=== PATIENT | female | born 1970 | race Hispanic/Latino ===

== ENCOUNTER 2023-11-17 10:16 | Observation (INO) | payer BC ==
[2023-11-17] MEDS ORDERED: ONDANSETRON 4 MG/2 ML VIAL ONE (10:46)
[2023-11-17] MEDS ORDERED: MORPHINE 4 MG/ML SYR ONE (10:46)
[2023-11-17 10:49] LABS: Absolute Eosinophils 0.2 K/uL (0-0.5); Absolute Lymphocytes (CBC) 1.7 K/uL (0.7-4.9); Absolute Monocytes 0.4 K/uL (0.1-1.3); Absolute Neutrophil 3.5 K/uL (1.8-8.0); Basophils % 0.8 % (0-1.3); Eosinophils % 3.3 % (0-4.4); Hematocrit 42.4 % (36.0-45.0); Hemoglobin 14.3 g/dL (12.0-15.0); Lymphocytes % 28.3 % (15.3-44.8); MCH 31.9 pg (27.0-35.0); MCHC 33.7 g/dL (32.0-36.0); MCV 94.5 fL (80-100); MPV 11.2 fL (7.6-11.3); Monocytes % 7.6 % (3.3-12.3); Platelets 174 thou/uL (152-406); RBC Red Blood Cell Count 4.48 M/uL (3.86-4.86); Red Cell Distribution Width 13.5 % (12.1-15.2)
[2023-11-17 10:52] LABS: PT Prothrombin Time 12.6 SECONDS (9.4-12.5); Protime INR 1.13
[2023-11-17 11:07] LABS: Troponin High Sensitivity 9.7 pg/mL (<58.9)
[2023-11-17] MEDS ORDERED: ASPIRIN 81 MG CHEWABLE TABLET ONE (11:18)
[2023-11-17] MEDS ORDERED: POTASSIUM 25 MEQ EFFERV TAB ONE (11:36)
[2023-11-17] MEDS ORDERED: POTASSIUM CL SA 10 MEQ TAB PO ONE (11:37)
--- NOTE | 2023-11-17 13:32 | ER ---
Nurse's Notes [facility] Name: Isabelle Martinez Age: 53 yrs Sex: Female : 1970 Arrival Date: 11/17/2023 Time: 10:16 Bed 20 Private MD: Diagnosis: Chest pain, unspecified Presentation: 11/16 10:27 Chief complaint: EMS states: Syncopal episode at work, reports chest pressure and ph dizziness prior to passing out, bystanders lowered her to the ground, BP elevated at 161/111, HR and SPo2 WNL, BGL 122, 22 G to L hand. Coronavirus screen: Vaccine status: Patient reports receiving the 2nd dose of the covid vaccine. Ebola Screen: No symptoms or risks identified at this time. Initial Sepsis Screen: Does the patient meet any 2 criteria? No. Patient's initial sepsis screen is negative. Does the patient have a suspected source of infection? No. Patient's initial sepsis screen is negative. Risk Assessment: Do you want to hurt yourself or someone else? Patient reports no desire to harm self or others. Onset of symptoms was November 17, 2023. 10:27 Method Of Arrival: EMS: [facility] 10:27 Acuity: QASIM 2 ph Triage Assessment: 10:30 General: Appears in no apparent distress. Behavior is calm, cooperative. Pain: Denies ph pain. Neuro: Level of Consciousness is awake, alert, obeys commands, Oriented to person, place, time, situation, Reports weakness. Cardiovascular: Reports fatigue, lightheadedness, syncope, chest pain prior to syncopal episode Capillary refill < 3 seconds in bilateral fingers Patient's skin is warm and dry. Respiratory: Airway is patent Respiratory effort is even, unlabored, Respiratory pattern is regular, symmetrical. Musculoskeletal: Circulation, motion, and sensation intact. Range of motion: intact in all extremities. 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 - Infectious Disease History:: Denies. - Social history:: Smoking status: Patient denies any tobacco usage or history of. Screenin:23 [facility] ED Fall Risk Assessment (Adult) History of falling in the last 3 months, ph including since admission No falls in past 3 months (0 pts) Confusion or Disorientation No (0 pts) Intoxicated or Sedated No (0 pts) Impaired Gait No (0 pts) Mobility Assist Device Used No (0 pt) Altered Elimination No (0 pt) Score/Fall Risk Level 0 - 2 = Low Risk Oriented to surroundings, Maintained a safe environment, Hourly rounding (assess needs \T\ fall precautionary measures) done. Abuse screen: Denies threats or abuse. Denies injuries from another. Nutritional screening: No deficits noted. Tuberculosis screening: No symptoms or risk factors identified. Assessment: 11:00 Reassessment: Pt c/o chest pain, ERP notified, repeat EKG and medication ordered, see ph APR. 12:30 Reassessment: Patient appears in no apparent distress at this time. Patient and/or ph family updated on plan of care and expected duration. Pain level reassessed. Patient is alert, oriented x 3, equal unlabored respirations, skin warm/dry/pink. 13:30 Reassessment: Patient appears in no apparent distress at this time. Patient and/or ph family updated on plan of care and expected duration. Pain level reassessed. Patient is alert, oriented x 3, equal unlabored respirations, skin warm/dry/pink. 14:30 Reassessment: Patient appears in no apparent distress at this time. Patient and/or ph family updated on plan of care and expected duration. Pain level reassessed. Patient is alert, oriented x 3, equal unlabored respirations, skin warm/dry/pink. 15:41 General: Appears in no apparent distress. comfortable, Behavior is calm, cooperative, cm10 appropriate for age. Neuro: No deficits noted. Level of Consciousness is awake, alert, obeys commands, Oriented to person, place, time, situation, Appropriate for age. Respiratory: No deficits noted. Airway is patent Respiratory effort is even, unlabored, Respiratory pattern is regular, symmetrical. Vital Signs: 10:27 BP 179 / 119; Pulse 89; Resp 18; Temp 97.6; Pulse Ox 96% on R/A; Weight 79.38 kg; ph Height 5 ft. 3 in. ; 11:11 BP 158 / 115; Pulse 83; Resp 18; Pulse Ox 98% on R/A; ph 12:30 BP 167 / 104; Pulse 84; Resp 18; Pulse Ox 98% on R/A; ph 13:30 BP 171 / 98; Pulse 82; Resp 18; Pulse Ox 99% on R/A; ph 14:30 BP 189 / 102; Pulse 76; Resp 16; Pulse Ox 99% on R/A; ph 15:41 BP 154 / 98; Pulse 78; Resp 16; Pulse Ox 98% on R/A; cm10 10:27 Body Mass Index 31.00 (79.38 kg, 160.02 cm) ph Vitals: 11:11 Cardiac Rhythm Assessment Sinus rhythm. ph ED Course: 10:26 Patient arrived in ED. ec2 10:26 Ameya Alexander MD is Attending Physician. ec2 10:26 Mira Cabral, DON is Primary Nurse. ph 10:29 Triage completed. ph 10:30 Arm band placed on Patient placed in an exam room, on a stretcher, on nuclear monitoring technician, ph on pulse oximetry. 10:45 Initial lab(s) drawn, by me, sent to lab. EKG done, by ED staff, reviewed by Ameya Alexander MD. Maintain EMS IV. Dressing intact. Good blood return noted. Site clean \T\ dry. Gauge \T\ site: 22 L hand. 11:05 EKG done, by ED staff, reviewed by Ameya Alexander MD. ph 11:20 CT Head Brain wo Cont In Process Unspecified. EDMS 11:23 Patient has correct armband on for positive identification. Bed in low position. Call ph light in reach. Side rails up X 1. air sampling and monitoring on. Pulse ox on. NIBP on. Door closed. Noise minimized. Warm blanket given. 11:40 XRAY Chest (1 view) In Process Unspecified. EDMS 13:32 Romulo Butcher MD is Hospitalizing Provider. ec2 15:42 Provided Education on: Need for admit. cm10 15:42 No provider procedures requiring assistance completed. Patient admitted, IV remains in cm10 place. Administered Medications: 11:10 Drug: morphine IVP or IV 4 mg IVP once over 4 mins Route: IVP; Infused Over: 4 mins; ph Site: left hand; 15:43 Follow up: Response: No adverse reaction cm10 11:11 Drug: Ondansetron IVP 4 mg IVP once; over 2 minutes Route: IVP; Site: left hand; 15:43 Follow up: Response: No adverse reaction cm10 11:49 Drug: Aspirin PO Chewable Tablet 324 mg PO once; 81 mg tablets x 4 Route: PO; ph 16:19 Follow up: Response: No adverse reaction cm10 11:49 Drug: Potassium Chloride PO Liquid 40 mEq PO once Route: PO; 15:43 Follow up: Response: No adverse reaction cm10 15:09 Drug: Coreg PO 6.25 mg PO once; administer with food Route: PO; 15:43 Follow up: Response: No adverse reaction; Blood pressure is lowered cm10 Medication: 11:23 VIS not applicable for this client. Outcome: 13:32 Decision to Hospitalize by Provider. ec2 15:42 Admitted to Tele accompanied by tech, via wheelchair, [facility] 15:42 Condition: good 15:42 Instructed on the need for admit, 16:18 Patient left the ED. cm10 Signatures: Dispatcher [employer] Kary Gentile RN RN Mira Cabral RN RN Sariah Carver RN RN [facility] Ameya Alexander MD MD 2
--- NOTE | 2023-11-17 13:32 | EDPHYS ---
Physician Documentation [facility] Name: Isabelle Martinez Age: 53 yrs Sex: Female : 1970 Arrival Date: 11/17/2023 Time: 10:16 Bed 20 Private MD: ED Physician Ameya Alexander HPI: 11/16 10:32 This 53 yrs old Female presents to ER via EMS with complaints of Syncope. ec2 10:32 Patient arrives today for evaluation of a syncopal episode. States that she was running ec2 and subsequently became lightheaded and passed out. Patient reports some chest pressure and discomfort as well. States that she has had bouts of these passing out episodes for the past several years. Patient reports no difficulty breathing. Patient reports otherwise no recent illnesses.. 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 - Infectious Disease History:: Denies. - Social history:: Smoking status: Patient denies any tobacco usage or history of. ROS: 10:32 Constitutional: as per hpi ec2 Exam: 10:32 ECG was reviewed by the Attending Physician. ec2 10:32 Constitutional: GEN: NAD Head: atraumatic Eyes: EOMI Ears: External ears are ec2 normal. CV: regular rate LUNGS: no respiratory distress ABD: non-distended SKIN: no evidence of rashes MSK: no evidence of trauma Vital Signs: 10:27 BP 179 / 119; Pulse 89; Resp 18; Temp 97.6; Pulse Ox 96% on R/A; Weight 79.38 kg; ph Height 5 ft. 3 in. ; 11:11 BP 158 / 115; Pulse 83; Resp 18; Pulse Ox 98% on R/A; ph 12:30 BP 167 / 104; Pulse 84; Resp 18; Pulse Ox 98% on R/A; ph 13:30 BP 171 / 98; Pulse 82; Resp 18; Pulse Ox 99% on R/A; ph 14:30 BP 189 / 102; Pulse 76; Resp 16; Pulse Ox 99% on R/A; ph 15:41 BP 154 / 98; Pulse 78; Resp 16; Pulse Ox 98% on R/A; cm10 10:27 Body Mass Index 31.00 (79.38 kg, 160.02 cm) ph MDM: 10:26 Patient medically screened. ec2 10:32 ED course: EKG independently reviewed and interpreted by me, shows normal sinus rhythm, ec2 rate of 88, no acute ST segment elevations, intervals are nonactionable.. 10:33 Data reviewed: vital signs. ED course: Patient arrives today for evaluation of ec2 lightheadedness and syncope. Examination remarkable for well-appearing nontoxic individuals otherwise hemodynamically stable in no acute distress. Will obtain a cardiac workup, CT scan of the head. Evaluating for processes such as intracranial brain bleed, electrolyte disturbances, arrhythmia, ACS.. 11:03 ED course: EKG independently reviewed and interpreted by me, shows normal sinus rhythm, ec2 rate of 88, no acute ST segment elevations, nonactionable intervals.. 11:17 ED course: Metabolic profile shows slight hypokalemia with potassium of 3.0, CBC ec2 reassuring without anemia, troponin within normal ranges. . 13:25 ED course: There is issues with transmission of radiology interpretations, per Dr. zach Gomez, CT scan of the head negative for acute intracranial process.. 13:31 ED course: Patient with reassuring workup however does have intermittent chest pain. ec2 Will admit for cardiac eval.. 11/16 10:26 Order name: Basic Metabolic Panel; Complete Time: 11:17 ec2 11/16 10:26 Order name: CBC with Diff; Complete Time: 11:17 ec2 11/16 10:26 Order name: NT PRO-BNP; Complete Time: 11: ec2 11/16 10:26 Order name: PT-INR; Complete Time: 11:17 ec2 11/16 10:26 Order name: Troponin HS; Complete Time: 11:17 ec2 11/16 10:26 Order name: XRAY Chest (1 view); Complete Time: 13:54 ec2 11/16 10:26 Order name: CT Head Brain wo Cont; Complete Time: 13:54 ec2 11/16 10:26 Order name: EKG; Complete Time: 10:27 ec2 11/16 10:26 Order name: Cardiac monitoring; Complete Time: 11: ec2 11/16 10:26 Order name: EKG - Nurse/Tech; Complete Time: 11:10 ec2 11/16 10:26 Order name: IV Saline Lock; Complete Time: 11:10 ec2 11/16 10:26 Order name: Labs collected and sent; Complete Time: 11: ec2 11/16 10:26 Order name: O2 Per Protocol; Complete Time: 11:10 ec2 11/16 10:26 Order name: O2 Sat Monitoring; Complete Time: 11: ec2 11/16 10:42 Order name: EKG - Nurse/Tech; Complete Time: 11:11 ec2 Administered Medications: 11:10 Drug: morphine IVP or IV 4 mg IVP once over 4 mins Route: IVP; Infused Over: 4 mins; ph Site: left hand; 15:43 Follow up: Response: No adverse reaction cm10 11:11 Drug: Ondansetron IVP 4 mg IVP once; over 2 minutes Route: IVP; Site: left hand; ph 15:43 Follow up: Response: No adverse reaction cm10 11:49 Drug: Aspirin PO Chewable Tablet 324 mg PO once; 81 mg tablets x 4 Route: PO; ph 16:19 Follow up: Response: No adverse reaction cm10 11:49 Drug: Potassium Chloride PO Liquid 40 mEq PO once Route: PO; ph 15:43 Follow up: Response: No adverse reaction cm10 15:09 Drug: Coreg PO 6.25 mg PO once; administer with food Route: PO; iw 15:43 Follow up: Response: No adverse reaction; Blood pressure is lowered cm10 Disposition Summary: 11/17/23 13:32 Hospitalization Ordered Notes: Hospitalization Status: Inpatient Admission ec2 Provider: Romulo Butcher ec2 Location: Telemetry/[facility] (Inpatient) ec2 Condition: Stable ec2 Problem: new ec2 Symptoms: have improved ec2 Bed/Room Type: Standard ec2 Room Assignment: 408(11/17/23 15:28) kb3 Diagnosis - Chest pain, unspecified ec2 Forms: - Medication Reconciliation Form ec2 - SBAR form ec2 - Leadership Thank You Letter ec2 Signatures: Dispatcher [employer] Kary Gentile RN RN Mira Cabral RN RN Whitney Jones RN RN kb3 Ameya Alexander MD MD ec2 Sariah Carver RN cm10 Corrections: (The following items were deleted from the chart) 15:28 13:32 ec2 kb3
--- NOTE | 2023-11-17 13:47 | RAD REPORT ---
EXAM: CT brain without contrast HISTORY: Syncope COMPARISON: None TECHNIQUE: Multiple contiguous axial images were obtained and a CT of the brain without contrast. Sagittal and coronal reformats were performed. Automated exposure control, adjustment of the mA and/or kV according to patient size, and/or itera tive reconstruction. Unless otherwise specified, incidental findings do not require dedicated imaging follow-u FINDINGS: An intracranial bleed is not seen Ventricles are normal caliber No extra-axial fluid collection noted No significant hypodensity within the brain No fluid within the visualized sinuses or mastoids noted. IMPRESSION: No acute intracranial abnormality noted. If the patient's symptoms persist MRI of the brain would be recommended.
--- NOTE | 2023-11-17 13:48 | RAD REPORT ---
Procedure: Chest Single View History: Chest pain Comparison: none The lungs appear clear of acute infiltrate.. alarm security or surveillance monitor in place No significant pleural effusion noted. The heart is normal size. IMPRESSION: No acute abnormality is displayed.
[2023-11-17] MEDS ORDERED: carvediloL 6.25 MG TAB ONE (15:02)
--- NOTE | 2023-11-17 16:11 | P.HP ---
Certification for Inpatient Patient admitted to: Observation With expected LOS: <2 Midnights Patient will require the following post-hospital care: None Practitioner: I am a practitioner with admitting privileges, knowledge of patient current condition, hospital course, and medical plan of care. Services: Services provided to patient in accordance with Admission requirements found in Title 42 Section 412.3 of the Code of Federal Regulations Patient History Date of Service: 11/17/23 Reason for admission: Chest pain, syncope History of Present Illness: 53-year-old female with history of hypertension, hyperlipidemia presents the emergency department chief complaint of syncope, chest pain. She reports that she has had multiple episodes of syncope in the past, has a loop recorder in place without any official diagnosis. 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 She reports similar episodes in the past, she states that she had an echocardiogram done maybe around 6 months ago a stress test a year and a half ago and has never had a coronary angiogram. She does report a family history of heart disease including CHF, CAD with her mother father and brother. Patient was evaluated in the emergency department initial high sensitive troponin was within normal limits at 9.7, patient is significantly hypertensive, she has not been taking her blood pressure medication for at least a few weeks now. I personally called her pharmacy and they do not have any record of blood pressure medications for her, her blood pressure is currently around 180/120, she reports this is not atypical for her. Patient admitted for further evaluation management chest pain, syncope. 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, lives at home with her - Family History Father -: Heart disease Mother -: Heart disease - Social History Alcohol use: No CD- Drugs: No Caffeine use: Yes Place of Residence: Home Review of Systems 10-point ROS is otherwise unremarkable Cardiovascular: Chest Pain, Other (Syncope) Physical Examination - Physical Exam General: Alert, In no apparent distress, Oriented x3 HEENT: Atraumatic, PERRLA, EOMI Neck: Supple, 2+ carotid pulse no bruit, No LAD Respiratory: Clear to auscultation bilaterally, Normal air movement Cardiovascular: Regular rate/rhythm, Normal S1 S2 Gastrointestinal: Normal bowel sounds, No tenderness Musculoskeletal: No tenderness Integumentary: No rashes Neurological: Normal speech, Normal strength at 5/5 x4 extr, Normal tone, Normal affect - Studies Laboratory Data (last 24 hrs) 11/17/23 11/17/23 11/17/23 10:38 10:38 10:38 WBC 5.90 Hgb 14.3 Hct 42.4 Plt Count 174 PT 12.6 H INR 1.13 Sodium 142 Potassium 3.0 L BUN 11 Creatinine 0.68 Glucose 103 Assessment and Plan - Plan Assessment: Chest pain, syncope Hypertensive urgency Hyperlipidemia Plan: Chest pain, syncope Hypertensive urgency Reports multiple episodes of syncope in the past with negative workup thus far Had loop recorder inserted about 2 years ago, has not heard anything back Reports echocardiogram around 6 months ago to 1 year ago, not aware of any abnormalities Stress test around a year and a half ago but was unable to tolerate finishing the test due to dizziness Has not had a coronary angiogram in the past Does have significant family history of CAD, CHF Was reportedly previously on blood pressure medications but has been noncompliant Started on Coreg at this time Troponins and monitor on telemetry, echo ordered Appreciate further input from cardiology Hyperlipidemia Continue statin DVT PPX: Lovenox Code status: Full Discharge Plan: Home Plan to discharge in: 24 Hours - Advance Directives Does patient have a Living Will: No Does patient have a Durable POA for Healthcare: No - Code Status/Comfort Care Code Status Assessed: Yes (Full code) Critical Care: No Time Spent Managing Pts Care (In Minutes): 64
[2023-11-17] MEDS ORDERED: ONDANSETRON 4 MG/2 ML VIAL IV PRN (16:29)
[2023-11-17] MEDS ORDERED: HYDRALAZINE HCL 20 MG/ML VIAL IV PRN (16:29)
[2023-11-17 16:54] VITALS: BMI 30.9
[2023-11-17] MEDS: ENOXAPARIN 40 MG/0.4 ML SQ SCH (17:48)
--- NOTE | 2023-11-17 17:53 | P.CNS ---
Date of Consult: 11/17/23 Chief Complaint: Chest pain, syncope History of Present Illness: Patient with PMH of palpitations, syncope, presented with chest pain, and syncope after a stressful event, she report that she has been having those chest pain episodes, left sided, radiating to left arm, pressure in nature, she was not able to finish a stress test in the past due to dizziness. Allergies No Known Allergies Allergy (Unverified 11/17/23 15:41) Home medications list reviewed: Yes Home Medications: Aspirin [Aspirin EC 81 MG] 1 tab PO DAILY 11/17/23 - Past Medical/Surgical History Diabetic: No -: Hyperlipidemia -: Hypertension -: Anxiety -: Partial hysterectomy -: Tubal ligation -: Cholecystectomy Psychosocial/ Personal History: Patient works as a corporate legal secretary in the intermediate, lives at home with her - Family History Father Medical History: Heart disease Mother Medical History: Heart disease - Social History Alcohol use: Yes CD- Drugs: No Caffeine use: Yes Place of Residence: Home Review of Systems 10-point ROS is otherwise unremarkable Physical Examination Temp Pulse Resp BP Pulse Ox 97.6 F 78 16 154/98 H 11/17/23 10:27 11/17/23 15:41 11/17/23 15:41 11/17/23 15:41 General: Alert, In no apparent distress HEENT: Atraumatic, PERRLA, Mucous membr. moist/pink, EOMI, Sclerae nonicteric Neck: Supple, 2+ carotid pulse no bruit, No LAD, Without JVD or thyroid abnormality Respiratory: Clear to auscultation bilaterally, Normal air movement Cardiovascular: Regular rate/rhythm, Normal S1 S2 Gastrointestinal: Normal bowel sounds, No tenderness Musculoskeletal: No tenderness Integumentary: No rashes Neurological: Normal gait, Normal speech, Normal tone, Normal affect Lymphatics: No axilla or inguinal lymphadenopathy Laboratory Data (last 24 hrs) 11/17/23 11/17/23 11/17/23 10:38 10:38 10:38 WBC 5.90 Hgb 14.3 Hct 42.4 Plt Count 174 PT 12.6 H INR 1.13 Sodium 142 Potassium 3.0 L BUN 11 Creatinine 0.68 Glucose 103 - Problems (1) Unstable angina Current Visit: Yes Status: Acute Plan: patient with strong family history of CAD, unable to get a stress test in the past due to dizziness, presented with typical angina symptoms NPO after midnight for coronary angiogram in am continue ASA 81 mg daily (2) HTN (hypertension) Current Visit: Yes Status: Acute Plan: change Coreg to Toprol XL 25 mg daily (3) Syncope Current Visit: Yes Status: Acute Plan: Patient got a loop recorder in place, will have her follow up in office for interrogation, will also monitor on tele overnight.
[2023-11-17 20:05] LABS: Specific Gravity 1.025 (1.005-1.030); Sqamous Epithelial <5 /HPF (None Seen); Urine Bacteria <20 /HPF (<20); Urine Bilirubin NEGATIVE (Negative); Urine Blood Negative (Negative); Urine Clarity Clear (Clear); Urine Color Light-Yellow (Yellow); Urine Culture Reflex Order NOT NEEDED; Urine Glucose NEGATIVE (Negative); Urine Ketones NEGATIVE (Negative); Urine Microscopic Reflex YN ORDER UMIC; Urine Mucus 4+ /HPF (None Seen); Urine Nitrite NEGATIVE (Negative); Urine Protein TRACE (Negative); Urine RBC <5 /HPF (None Seen); Urine Urobilinogen Normal (Normal); Urine WBC <5 /HPF (<5)
[2023-11-17] MEDS: ATORVASTATIN 40 MG TAB PO SCH (21:09)
[2023-11-17] MEDS: MORPHINE 2 MG/ML SYR IV PRN (21:09)
[2023-11-17] MEDS: TRAZODONE 50 MG TABLET PO PRN (22:27)
[2023-11-18] MEDS ORDERED: carvediloL 6.25 MG TAB PO SCH (06:00)
[2023-11-18] MEDS: METOPROLOL XL 25 MG TAB PO SCH (06:31)
--- NOTE | 2023-11-18 06:42 | ECHO ---
HEIGHT: 5 ft 3 in WEIGHT: 175 lb 0 oz DATE OF STUDY: 11/17/[address]: Alex Henson NP 2-DIMENSIONAL: YES M.MODE: YES DOPPLER: YES COLOR FLOW: YES TDS: PORTABLE: YES DEFINITY: BUBBLE STUDY: DIAGNOSIS: CHEST PAIN, SYNCOPE CARDIAC HISTORY: CATHERIZATION: NO SURGERY: NO PROSTHETIC VALVE: NO PACEMAKER: NO MEASUREMENTS (cm) DIASTOLIC (NORMALS) SYSTOLIC (NORMALS) IVSd 1.2 (0.6-1.2) LA Diam 2.8 (1.9-4.0) LVEF 60-65% LVIDd 4.0 (3.5-5.7) LVIDs 2.8 (2.0-3.5) %FS 29% LVPWd 1.1 (0.6-1.2) Ao Diam 2.6 (2.0-3.7) 2 DIMENSIONAL ASSESSMENT: RIGHT ATRIUM: NORMAL LEFT ATRIUM: NORMAL RIGHT VENTRICLE: NORMAL LEFT VENTRICLE: NORMAL TRICUSPID VALVE: NORMAL MITRAL VALVE: NORMAL PULMONIC VALVE: NORMAL AORTIC VALVE: NORMAL PERICARDIAL EFFUSION: NONE AORTIC ROOT: NORMAL LEFT VENTRICULAR WALL MOTION: NORMAL DOPPLER/COLOR FLOW: NORMAL COMMENTS: 1. NORMAL LEFT VENTRICULAR SYSTOLIC FUNCTION, EJECTION FRACTION 60-65%, NORMAL DIASTOLIC FUNCTION TECHNOLOGIST: BUZZ BENÍTEZ
[2023-11-18 07:43] LABS: Absolute Eosinophils 0.3 K/uL (0-0.5); Absolute Lymphocytes (CBC) 1.7 K/uL (0.7-4.9); Absolute Monocytes 0.5 K/uL (0.1-1.3); Absolute Neutrophil 2.9 K/uL (1.8-8.0); Basophils % 0.8 % (0-1.3); Eosinophils % 5.4 % (0-4.4); Hemoglobin 13.9 g/dL (12.0-15.0); Lymphocytes % 31.8 % (15.3-44.8); MCH 32.5 pg (27.0-35.0); MCHC 34.6 g/dL (32.0-36.0); MCV 93.9 fL (80-100); MPV 10.8 fL (7.6-11.3); Nucleated Red Blood Cells % 0.2 % (0-0); Platelets 160 thou/uL (152-406); RBC Red Blood Cell Count 4.26 M/uL (3.86-4.86); Red Cell Distribution Width 13.7 % (12.1-15.2)
[2023-11-18 07:54] LABS: Albumin 3.3 g/dL (3.4-5.0); Albumin/Globulin Ratio 0.8 (1.1-1.8); Anion Gap 6.4 mEq/L (5.0-15.0); Bilirubin Total 0.6 mg/dL (0.2-1.0); Potassium 3.4 mEq/L (3.5-5.1); Protein, Total 7.3 g/dL (6.4-8.2); Thyroid Stimulating Hormone 0.834 uIU/mL (0.358-3.740)
[2023-11-18] MEDS: ASPIRIN EC 81 MG TAB PO SCH (08:18)
[2023-11-18 08:23] VITALS: TEMP 97.7
[2023-11-18] MEDS ORDERED: NA CHLORIDE 0.9% 500 ML ONE (09:33)
[2023-11-18] MEDS ORDERED: ATROPINE SULF 1 MG/10 ML SYR IV ONE (10:44)
[2023-11-18] MEDS ORDERED: HEPA 1000U/500MLS 2,000 UNIT/1,000 ML BAG IV ONE (10:44)
[2023-11-18] MEDS ORDERED: LIDOCAINE 1% 20 ML MDV ONE (10:44)
[2023-11-18] MEDS ORDERED: HEPARIN 10,000 UNIT/10 ML VIAL IV ONE (10:44)
[2023-11-18] MEDS ORDERED: MIDAZOLAM HCL 2 MG/2 ML INJ ONE (10:44)
[2023-11-18] MEDS ORDERED: HEPARIN 5000 UNIT/ML 1 ML VIAL ONE (10:45)
[2023-11-18] MEDS ORDERED: CLOPIDOGREL 75 MG TABLET ONE (10:45)
[2023-11-18] MEDS ORDERED: FENTANYL CITR 100 MCG/2 ML ONE (10:45)
[2023-11-18] MEDS ORDERED: TICAGRELOR 90 MG TABLET PO ONE (10:46)
[2023-11-18] MEDS ORDERED: ASPIRIN 325 MG TAB ONE (10:46)
--- NOTE | 2023-11-18 12:01 | P.PN ---
Subjective Date of Service: 11/18/23 Chief Complaint: Chest pain, syncope Subjective: No new changes, No C/O voiced, Tolerating diet, Ambulating, Improving Review of Systems 10-point ROS is otherwise unremarkable Physical Examination - Vital Signs Temperature: 97.7 F Blood Pressure: 130/83 Pulse: 61 Respirations: 16 Pulse Ox (%): 94 - Physical Exam General: Alert, In no apparent distress HEENT: Atraumatic, PERRLA, EOMI Neck: Supple, JVD not distended Respiratory: Clear to auscultation bilaterally, Normal air movement Cardiovascular: Regular rate/rhythm, Normal S1 S2 Gastrointestinal: Normal bowel sounds, No tenderness Musculoskeletal: No tenderness Integumentary: No rashes Neurological: Normal speech, Normal tone, Normal affect Lymphatics: No axilla or inguinal lymphadenopathy - Studies Medications List Reviewed: Yes Assessment And Plan - Current Problems (Diagnosis) (1) Unstable angina Current Visit: Yes Status: Acute Plan: patient with strong family history of CAD, unable to get a stress test in the past due to dizziness, presented with typical angina symptoms Coronary angiogram done and shows normal coronaries Stop ASPIRIN Continue Toprol XL 25 mg daily (2) HTN (hypertension) Current Visit: Yes Status: Acute Plan: Toprol XL 25 mg daily (3) Syncope Current Visit: Yes Status: Acute Plan: Patient got a loop recorder in place, will have her follow up in office for interrogation, tele did not show any arrhythmia.
--- NOTE | 2023-11-18 12:11 | EKG ---
Test Date: 2023-11-17 Test Time: 10:45:35 Resource Engineer: JOSHUA MEASUREMENT RESULTS: Intervals: Rate: 88 CA: 158 QRSD: 80 QT: 404 QTc: 488 Healy: P: 39 CA: 158 QRS: -29 T: 21 INTERPRETIVE STATEMENTS: Sinus rhythm with occasional premature ventricular complexes Voltage criteria for left ventricular hypertrophy Prolonged QT Abnormal ECG Compared to ECG 11/17/2023 10:30:00 Ventricular premature complex(es) now present Left ventricular hypertrophy now present Prolonged QT interval now present T-wave abnormality no longer present Possible ischemia no longer present Electronically Signed On 11-18-23 12:09:00 CDT by Keven Carrillo
--- NOTE | 2023-11-18 12:11 | EKG ---
Test Date: 2023-11-17 Test Time: 10:30:00 Access Director: EULALIA MEASUREMENT RESULTS: Intervals: Rate: 88 AL: 154 QRSD: 86 QT: 392 QTc: 474 [place]: P: -77 AL: 154 QRS: 75 T: -69 INTERPRETIVE STATEMENTS: Unusual P axis, possible ectopic atrial rhythm T wave abnormality, consider inferior ischemia Abnormal ECG No previous ECG available for comparison Electronically Signed On 11-18-23 12:09:05 CDT by Keven Carrillo
--- NOTE | 2023-11-18 12:51 | OP ---
Date of Procedure: 11/18/2023 Surgeon: Keven Carrillo Procedures Performed: 1.Left heart catheterization. 2.Selective coronary angiogram. Indication For Procedures: Unstable angina. Complications: None. Estimated Blood Loss: Less than 50 cc. Access: Right radial, closed by TR band. Sedation Time: 20 minutes with 2 of Versed and 50 of fentanyl. Description Of Procedure: After risks, and benefits, and alternatives were explained to patient, pat ient agreed to proceed with the procedure and signed informed consent. The patient was brought back to the pathology lab technician, prepped and draped in a sterile fashion. Time-out was performed. Sedation was admi nistered. Next, a [place] 4.0 catheter was advanced over a J-wire to the LV cavity. LVEDP was obtaine d. The pullback did not show any gradient. Same catheter was used for selective angiogram of the le ft and right coronary artery systems. Catheter was removed over a J-wire. Sheath was removed. TR b and was applied. Hemostasis was achieved, and the patient was moved back to recovery in stable condi tion. Findings: 1.Left main normal. 2.LAD normal. 3.Left circ normal. 4.RCA normal. 5.LVEDP 2 mmHg. Assessment And Plan: 1.Normal coronaries. 2.Normal filling pressures. Plan will be to continue medical management. FAVIAN Voice ID: [id number] Report ID: [id number]
[2023-11-18 14:19] VITALS: O2SAT 93
[2023-11-18 14:33] VITALS: BP 127/73
--- NOTE | 2023-11-18 17:45 | P.DS ---
Admission Date: 11/17/23 Discharge Date: 11/18/23 Disposition: ROUTINE DISCHARGE Discharge Condition: GOOD Reason for Admission: Chest pain, syncope Consultations: Cardiology Procedures: Normal [facility] Brief History of Present Illness: 53-year-old female with history of hypertension, hyperlipidemia presents the emergency department chief complaint of syncope, chest pain. She reports that she has had multiple episodes of syncope in the past, has a loop recorder in place without any official diagnosis. She was at work at the [employer] and had to run to respond to an incident, after that she walked to an office where she was standing, during that time she began to experience tightness in her chest followed by a syncopal episode with loss of consciousness. She reports similar episodes in the past, she states that she had an echocardiogram done maybe around 6 months ago a stress test a year and a half ago and has never had a coronary angiogram. She does report a family history of heart disease including CHF, CAD with her mother father and brother. Patient was evaluated in the emergency department initial high sensitive troponin was within normal limits at 9.7, patient is significantly hypertensive, she has not been taking her blood pressure medication for at least a few weeks now. I personally called her pharmacy and they do not have any record of blood pressure medications for her, her blood pressure is currently around 180/120, she reports this is not atypical for her. Patient admitted for further evaluation management chest pain, syncope. Hospital Course: Assessment: Chest pain, syncope Hypertensive urgency Hyperlipidemia Patient was admitted for chest pain, recurrent syncope. Troponins were trended and negative/flat. She was seen by cardiology who recommended coronary angiogram which was performed today on 11/17 which showed normal coronaries and pressures. Patient has a loop recorder in place and has been counceled to follow up with her anesthesiology resident to have this device interrogated. Her blood pressure was markedly elevated on arrival, she has been off of her meds for a while now. She has been started on Toprol XL 25mg with good control. Please follow up with your PCP in 1-2 weeks Vital Signs/Physical Exam: Temp Pulse Resp BP Pulse Ox 97.7 F 76 16 127/73 97 11/18/23 14:33 11/18/23 14:33 11/18/23 14:33 11/18/23 14:33 11/18/23 14:33 General: Alert, In no apparent distress, Oriented x3 HEENT: Atraumatic, PERRLA Neck: Supple, JVD not distended Respiratory: Normal air movement Cardiovascular: No edema Gastrointestinal: Normal bowel sounds Musculoskeletal: No tenderness Integumentary: No rashes Neurological: Normal speech, Normal tone Laboratory Data at Discharge: WBC 5.50 thou/uL (4.3-10.9) 11/18/23 06:49 Hgb 13.9 g/dL (12.0-15.0) 11/18/23 06:49 Hct 40.0 % (36.0-45.0) 11/18/23 06:49 Plt Count 160 thou/uL (152-406) 11/18/23 06:49 PT 12.6 SECONDS (9.4-12.5) H 11/17/23 10:38 INR 1.13 11/17/23 10:38 Sodium 138 mEq/L (136-145) 11/18/23 06:49 Potassium 3.4 mEq/L (3.5-5.1) L D 11/18/23 06:49 BUN 15 mg/dL (7-18) 11/18/23 06:49 Creatinine 0.69 mg/dL (0.55-1.02) 11/18/23 06:49 Glucose 106 mg/dL (74-106) 11/18/23 06:49 Total Bilirubin 0.6 mg/dL (0.2-1.0) 11/18/23 06:49 AST 17 U/L (15-37) 11/18/23 06:49 ALT 27 U/L (13-56) 11/18/23 06:49 Alkaline Phosphatase 76 U/L (45-117) 11/18/23 06:49 Home Medications: Metoprolol Succinate [Toprol Xl*] 25 mg PO [id number] #30 tab 11/18/23 New Medications: Metoprolol Succinate [Toprol Xl*] 25 mg PO [id number] #30 tab Physician Discharge Instructions: Patient was admitted for chest pain, recurrent syncope. Troponins were trended and negative/flat. She was seen by cardiology who recommended coronary angiogram which was performed today on 11/17 which showed normal coronaries and pressures. Patient has a loop recorder in place and has been counceled to follow up with her anesthesiology resident to have this device interrogated. Her blood pressure was markedly elevated on arrival, she has been off of her meds for a while now. She has been started on Toprol XL 25mg with good control. Please follow up with your PCP in 1-2 weeks Diet: Regular Activity: Ad mariam Followup: Keven Carrillo MD [ACTIVE - CAN ADMIT] - 1-2 Weeks NONE,NONE [Primary Care Provider] - 1-2 Weeks Time spent managing pt's care (in minutes): 36
== END 2023-11-18 16:04 | disposition home or self-care (01) ==
LOC: ER 10:16 → ERHOLD 13:57 → 4TH 15:58
PROVIDERS: ADMIT Hospitalist; ATTEND Hospitalist
PROC: 4A023N7 Measurement of Cardiac Sampling and Pressure, Left Heart, Percutaneous Approach (ICD-10-PCS; principal; 2023-11-17)
PROC: B2111ZZ Fluoroscopy of Multiple Coronary Arteries using Low Osmolar Contrast (ICD-10-PCS; 2023-11-17)
DX: I20.0 Unstable angina (principal); I16.0 Hypertensive urgency; R55 Syncope and collapse; I48.91 Unspecified atrial fibrillation; E78.5 Hyperlipidemia, unspecified; F41.9 Anxiety disorder, unspecified; Z91.148 Patient's other noncompliance with medication regimen for other reason; Z95.818 Presence of other cardiac implants and grafts; Z90.49 Acquired absence of other specified parts of digestive tract; Z82.49 Family history of ischemic heart disease and other diseases of the circulatory system
CPT/HCPCS: 93005 ×2; 93306; 85025 ×2; 81001; 80048; 36415; 85610; 84443; 84484 ×3; 84439; 80053; 83880; 70450; 71045; 93458; 76937; 96375; 96374; 99285; C1893; Q9966; J1644; J2001; J1650; J2250; J3010; J2270; J2405; G0378 ×5; J7040; 99152; 99153; J0461

== ENCOUNTER 2024-03-06 13:56 | Emergency (ER) | payer BC ==
[2024-03-06 15:08] LABS: Absolute Basophils 0.2 K/uL (0-0.5); Absolute Eosinophils 0.3 K/uL (0-0.5); Absolute Lymphocytes (CBC) 1.8 K/uL (0.7-4.9); Absolute Monocytes 0.5 K/uL (0.1-1.3); Absolute Neutrophil 4.1 K/uL (1.8-8.0); Eosinophils % 4.1 % (0-4.4); Hemoglobin 14.8 g/dL (12.0-15.0); Lymphocytes % 26.2 % (15.3-44.8); MCHC 34.5 g/dL (32.0-36.0); MCV 92.8 fL (80-100); MPV 11.1 fL (7.6-11.3); Monocytes % 7.6 % (3.3-12.3); Neutrophils % 59.1 % (41.7-73.7); Nucleated Red Blood Cells % 0.1 % (0-0); Platelets 177 thou/uL (152-406); RBC Red Blood Cell Count 4.63 M/uL (3.86-4.86); Red Cell Distribution Width 13.2 % (12.1-15.2)
[2024-03-06 15:21] LABS: Anion Gap 8.4 mEq/L (5.0-15.0); Troponin High Sensitivity 5.6 pg/mL (<58.9)
[2024-03-06 15:26] LABS: PT Prothrombin Time 12.4 SECONDS (9.4-12.5); Protime INR 1.18
[2024-03-06 15:29] LABS: Potassium 3.4 mEq/L (3.5-5.1)
--- NOTE | 2024-03-06 16:09 | RAD REPORT ---
EXAMINATION: ONE VIEW CHEST XR CLINICAL INDICATION: Female, 53 years old.,CHEST PAIN TECHNIQUE: Frontal chest projection is submitted. Examination is limited by patient positioning and t echnique. COMPARISON: 10/28/2023 FINDINGS: The lungs are well inflated and clear. Implantable rhythm monitoring device again seen. No pneumothor ax or sizable effusion. The heart is normal in size. Mediastinal contours are unremarkable. IMPRESSION: No acute intrathoracic abnormalities.
--- NOTE | 2024-03-06 16:47 | RAD REPORT ---
EXAM: CT Chest For Pe Angio TECHNIQUE: CT angiogram of the chest was performed following intravenous contrast administration, inc luding sagittal and coronal as well as maximum intensity projection reformats. One or more of the following dose reduction techniques were used: Automated exposure control, adjustment of the mA and k V according to patient size, and iterative reconstruction. Unless otherwise specified, incidental findings do not require dedicated imaging follow-up. INDICATION: [facility] MAIN Chest pain;Dyspnea Bed Name: 15 Y COMPARISON: Chest radiograph of earlier the same day. FINDINGS: LINES/TUBES: None. PULMONARY ARTERIES: Main pulmonary arteries are normal in caliber. No filling defects within the pul monary arteries to suggest pulmonary embolus. LUNGS AND AIRWAYS: The lungs and central airways are normal without focal abnormality. PLEURA: No effusion or pneumothorax. HEART AND MEDIASTINUM: The visualized thyroid gland is normal. No mediastinal, hilar, or axillary lym phadenopathy. Heart is unremarkable. No pericardial effusion. SOFT TISSUES AND BONES: No acute osseous abnormality. No significant soft tissue finding. UPPER ABDOMEN: Unremarkable. IMPRESSION: No evidence of acute central pulmonary emboli. No suspicious intrathoracic findings..
--- NOTE | 2024-03-06 17:34 | ER ---
Nurse's Notes [facility] Name: Isabelle Martinez Age: 53 yrs Sex: Female : 1970 Arrival Date: 03/06/2024 Time: 13:56 Bed 15 Private MD: Diagnosis: Chest pain, unspecified Presentation: 03/06 14:08 Chief complaint: Patient states: left sided chest pain and SOB , radiates to left arm, iw has been ongoing over months , is episodic. Coronavirus screen: At this time, the client does not indicate any symptoms associated with coronavirus-19. Ebola Screen: No symptoms or risks identified at this time. Initial Sepsis Screen: Does the patient meet any 2 criteria? No. Patient's initial sepsis screen is negative. Does the patient have a suspected source of infection? No. Patient's initial sepsis screen is negative. Risk Assessment: Do you want to hurt yourself or someone else? Patient reports no desire to harm self or others. Onset of symptoms was December 24, 2023. 14:08 Method Of Arrival: Ambulatory iw 14:08 Acuity: QASIM 3 iw Historical: - Allergies: 14:40 No Known Allergies; iw - PMHx: 14:10 Atrial fibrillation; Hypercholesterolemia; Loop recorder; iw 14:40 Hypertensive disorder; iw - Immunization history:: Adult Immunizations unknown. - Infectious Disease History:: Denies. - Family history:: not pertinent. - Hospitalizations: : No recent hospitalization is reported. - Social history:: Smoking status: Patient denies any tobacco usage or history of. Screenin:00 [facility] ED Fall Risk Assessment (Adult) History of falling in the last 3 months, db including since admission No falls in past 3 months (0 pts) Confusion or Disorientation No (0 pts) Intoxicated or Sedated No (0 pts) Impaired Gait No (0 pts) Mobility Assist Device Used No (0 pt) Altered Elimination No (0 pt) Score/Fall Risk Level 0 - 2 = Low Risk Oriented to surroundings, Maintained a safe environment. Abuse screen: Denies threats or abuse. Denies injuries from another. Nutritional screening: No deficits noted. Tuberculosis screening: No symptoms or risk factors identified. Assessment: 15:30 Reassessment: Patient appears in no apparent distress at this time. Patient and/or db family updated on plan of care and expected duration. Pain level reassessed. Patient is alert, oriented x 3, equal unlabored respirations, skin warm/dry/pink. 16:00 Reassessment: Patient appears in no apparent distress at this time. Patient and/or db family updated on plan of care and expected duration. Pain level reassessed. Patient is alert, oriented x 3, equal unlabored respirations, skin warm/dry/pink. General: Appears in no apparent distress. uncomfortable, Behavior is calm, cooperative. Pain: Complains of pain in chest Pain does not radiate. Pain began suddenly. Neuro: Level of Consciousness is awake, alert, obeys commands, Oriented to person, place, time, situation. Cardiovascular: Reports chest pain, shortness of breath. Respiratory: Airway is patent Respiratory effort is even, unlabored, Respiratory pattern is regular, symmetrical. 16:47 Reassessment: Patient appears in no apparent distress at this time. Patient and/or db family updated on plan of care and expected duration. Pain level reassessed. Patient is alert, oriented x 3, equal unlabored respirations, skin warm/dry/pink. 17:34 Reassessment: Patient appears in no apparent distress at this time. Patient and/or db family updated on plan of care and expected duration. Pain level reassessed. Patient is alert, oriented x 3, equal unlabored respirations, skin warm/dry/pink. Patient states feeling better. Patient states symptoms have improved. Vital Signs: 14:39 BP 149 / 102; Pulse 87; Resp 19; Temp 97.8; Pulse Ox 95% on R/A; iw 14:45 BP 154 / 107; Pulse 85; Resp 24; Pulse Ox 95% ; db 16:00 BP 139 / 80; Pulse 80; Resp 20; Pulse Ox 94% on R/A; db 16:47 BP 126 / 83; Pulse 82; Resp 16; Pulse Ox 94% on R/A; jb4 17:00 BP 132 / 84; Pulse 82; Resp 19; Pulse Ox 94% ; db ED Course: 13:59 Patient arrived in ED. sj2 14:00 Eric Butcher MD is Attending Physician. rn 14:10 Triage completed. iw 14:30 Initial lab(s) drawn, by me, sent to lab. Inserted saline lock: 20 gauge in right db antecubital area, using aseptic technique. Blood collected. Flushed with 10 mL NS. 14:41 Arm band placed on. iw 14:43 Brandy Valverde, RN is Primary Nurse. db 15:00 XRAY Chest (1 view) In Process Unspecified. EDMS 15:00 Patient has correct armband on for positive identification. Bed in low position. Call db light in reach. Side rails up X 1. Provided Education on:. Client placed on continuous cardiac and pulse oximetry monitoring. NIBP monitoring applied. muffler mechanic on. Pulse ox on. NIBP on. Warm blanket given. 16:00 CT Chest For PE Angio In Process Unspecified. EDMS 17:33 Ry Capellan MD is Referral Physician. rn 17:46 No provider procedures requiring assistance completed. IV discontinued, intact, db bleeding controlled, No redness/swelling at site. Patient maintains SpO2 saturation greater than 95% on room air. Administered Medications: No medications were administered Medication: 17:38 VIS not applicable for this client. db Outcome: 17:33 Discharge ordered by . rn 17:46 Discharged to home ambulatory, db 17:46 Condition: stable 17:46 Discharge instructions given to patient, Instructed on discharge instructions, follow up and referral plans. 17:46 Patient left the ED. db Signatures: Dispatcher [employer] EDLA Kary Yu RN RN iw Eric Butcher MD MD rn Bryson, James, RN RN jb4 Brandy Valverde, RN RN Anais Burnham sj2 Corrections: (The following items were deleted from the chart) 14:41 14:10 PMHx: Hypertensive disorder; iw iw 14:41 14:40 PMHx: Hypercholesterolemia; iw iw 17:34 16:47 Reassessment: Patient appears in no apparent distress at this time. Patient db and/or family updated on plan of care and expected duration. Pain level reassessed. Patient is alert, oriented x 3, equal unlabored respirations, skin warm/dry/pink. jb4
--- NOTE | 2024-03-06 17:34 | EDPHYS ---
Physician Documentation [facility] Name: Isabelle Martinez Age: 53 yrs Sex: Female : 1970 Arrival Date: 03/06/2024 Time: 13:56 Bed 15 Private MD: ED Physician Eric Butcher HPI: 03/06 14:20 This 53 yrs old Female presents to ER via Ambulatory with complaints of Chest rn Pain, Shortness Of Breath. 14:20 The patient or guardian reports chest pain that is located primarily in the anterior rn chest wall, left. The pain radiates to the left arm. Associated signs and symptoms: Pertinent positives: shortness of breath, Pertinent negatives: cough, diaphoresis, lower extremity swelling, lightheadedness, palpitations. The chest pain is described as aching, a heaviness. Duration: The patient or guardian reports multiple episodes, that are intermittent. Modifying factors: The symptoms are alleviated by nothing. the symptoms are aggravated by nothing. The patient has experienced similar episodes in the past. Patient reports has been having ongoing intermittent chest pain for years. Just had heart cath 2 months ago and told heart was good and did not need any stents. Has also had an implantable loop recorder without any abnormal findings. Reports still having chest pain associated with shortness of breath and radiates to the left arm so came in for evaluation.. Historical: - Allergies: 14:40 No Known Allergies; iw - PMHx: 14:10 Atrial fibrillation; Hypercholesterolemia; Loop recorder; iw 14:40 Hypertensive disorder; iw - Immunization history:: Adult Immunizations unknown. - Infectious Disease History:: Denies. - Family history:: not pertinent. - Hospitalizations: : No recent hospitalization is reported. - Social history:: Smoking status: Patient denies any tobacco usage or history of. ROS: 14:20 Constitutional: Negative for fever, chills, and weight loss, Cardiovascular: Negative rn for palpitations, and edema, Respiratory: Negative for cough, wheezing, and pleuritic chest pain, Abdomen/GI: Negative for abdominal pain, nausea, vomiting, diarrhea, and constipation, MS/Extremity: Negative for injury and deformity, Neuro: Negative for headache, weakness, numbness, tingling, and seizure, Exam: 14:20 Constitutional: This is a well developed, well nourished patient who is awake, alert, rn and in no acute distress. Ambulatory to room without assistance or difficulty Head/Face: Normocephalic, atraumatic. Cardiovascular: Regular rate and rhythm. No pulse deficits. Respiratory: Speaking full sentences, unlabored. No dyspnea when walking to room. No increased work of breathing, no retractions or nasal flaring. Abdomen/GI: Soft, non-tender MS/ Extremity: Pulses equal, no cyanosis. Neurovascular intact. Full, normal range of motion. Equal circumference. Neuro: Awake and alert, GCS 15, oriented to person, place, time, and situation. Normal strength throughout. Normal sensation. Normal gait 15:17 ECG was reviewed by the Attending Physician. rn Vital Signs: 14:39 BP 149 / 102; Pulse 87; Resp 19; Temp 97.8; Pulse Ox 95% on R/A; iw 14:45 BP 154 / 107; Pulse 85; Resp 24; Pulse Ox 95% ; db 16:00 BP 139 / 80; Pulse 80; Resp 20; Pulse Ox 94% on R/A; db 16:47 BP 126 / 83; Pulse 82; Resp 16; Pulse Ox 94% on R/A; jb4 17:00 BP 132 / 84; Pulse 82; Resp 19; Pulse Ox 94% ; db MDM: 14:00 Medical Screening Exam initiated rn 17:31 Differential diagnosis: acute myocardial infarction, acute pericarditis, anxiety, rn coronary artery disease chest wall pain, costochondritis, esophagitis, gastritis, gastroesophageal reflux disease (GERD), peptic ulcer disease, pneumothorax, pulmonary embolus. Data reviewed: vital signs, nurses notes, lab test result(s), EKG, radiologic studies, CT scan, and as a result, I will discharge patient. Counseling: I had a detailed discussion with the patient and/or guardian regarding the historical points, exam findings, and any diagnostic results supporting the discharge/admit diagnosis, lab results, radiology results, the need for outpatient follow up, to return to the emergency department if symptoms worsen or persist or if there are any questions or concerns that arise at home. Special discussion: Based on the patient's history, exam, and Dx evaluation, there is no indication for emergent intervention or inpatient Tx. It is understood by the patient/guardian that if the Sx's persist or worsen they need to return immediately for re-evaluation. I discussed with the patient/guardian in detail that at this point there is no indication for admission to the hospital. It is understood, however, that if the symptoms persist or worsen the patient needs to return immediately for re-evaluation. ED course: No acute findings and workup today including blood work/EKG/CT PE protocol. Normal vital signs. Just had cardiac cath in the last 2 months with negative workup. Will discharge home with return precautions. Also recommend neuro follow-up due to these episodic syncope versus seizure episodes.. 03/06 14:01 Order name: Basic Metabolic Panel; Complete Time: 15:30 rn 03/06 14:01 Order name: CBC with Diff; Complete Time: 15:03/06 14:01 Order name: NT PRO-BNP; Complete Time: 15: rn 03/06 14:01 Order name: PT-INR; Complete Time: 15:03/06 14:01 Order name: Troponin HS; Complete Time: 15:03/06 14:01 Order name: XRAY Chest (1 view); Complete Time: 17:03/06 14:12 Order name: CT Chest For PE Angio; Complete Time: 17:03/06 14:01 Order name: EKG; Complete Time: 14:03/06 14:01 Order name: Cardiac monitoring; Complete Time: 15:03/06 14:01 Order name: EKG - Nurse/Tech; Complete Time: 15:03/06 14:01 Order name: IV Saline Lock; Complete Time: 15:03/06 14:01 Order name: Labs collected and sent; Complete Time: 15:03/06 14:01 Order name: O2 Per Protocol; Complete Time: 15:03/06 14:01 Order name: O2 Sat Monitoring; Complete Time: 15:15 rn EC: Rate is 85 beats/min. Rhythm is regular. QRS [place] is Normal. CT interval is normal. QRS rn interval is normal. QT interval is normal. No Q waves. T waves are Normal. No ST changes noted. Clinical impression: NSR w/ Non-specific ST/T Changes. Interpreted by me. Reviewed by me. Administered Medications: No medications were administered Disposition Summary: 03/06/24 17:33 Discharge Ordered Notes: Location: Home rn Problem: an ongoing problem rn Symptoms: have improved rn Condition: Stable rn Diagnosis - Chest pain, unspecified rn Followup: rn - With: Ry Capellan MD - When: As needed - Reason: Recheck today's complaints, Re-evaluation by your physician Discharge Instructions: - Discharge Summary Sheet rn - Nonspecific Chest Pain, Adult rn Forms: - Medication Reconciliation Form rn - Antibiotic rn pool - Prescription Opioid Use rn - Patient Portal Instructions rn - Leadership Thank You Letter rn Signatures: Dispatcher [employer] Kary Gentile, Eric Stevens RN, MD MD rn Benton, Danielle, RN RN db Corrections: (The following items were deleted from the chart) 14:01 14:01 BASIC METABOLIC PANEL+C.LAB.BRZ ordered. EDMS EDMS 14: 14:01 CBC+H.LAB.BRZ ordered. EDMS EDMS 14: 14:01 PROBNP+C.LAB.BRZ ordered. EDMS EDMS 14: 14:01 PROTIME (+INR)+COAG.LAB.BRZ ordered. EDMS EDMS 14: 14:01 Troponin High Sensitivity+C.LAB.BRZ ordered. EDMS EDMS 14:41 14:10 PMHx: Hypertensive disorder; iw iw 14:41 14:40 PMHx: Hypercholesterolemia; iw
[2024-03-07 17:00] VITALS: BP 132/84; TEMP 97.8; O2SAT 94
--- NOTE | 2024-03-09 12:02 | EKG ---
Test Date: 2024-03-06 Test Time: 15:10:39 Graphic Art Designer: REYNALDO MEASUREMENT RESULTS: Intervals: Rate: 85 CT: 152 QRSD: 90 QT: 410 QTc: 487 [place]: P: 66 CT: 152 QRS: -20 T: 50 INTERPRETIVE STATEMENTS: Normal sinus rhythm Possible Anterior infarct, age undetermined Abnormal ECG Compared to ECG 11/17/2023 10:45:35 Myocardial infarct finding now present Ventricular premature complex(es) no longer present Left ventricular hypertrophy no longer present Prolonged QT interval no longer present Electronically Signed On 03-09-24 12:00:09 BOX BUILDER by Keven Carrillo
== END 2024-03-06 17:46 | disposition home or self-care (01) ==
LOC: ER 13:56
DX: R07.9 Chest pain, unspecified (principal); I10 Essential (primary) hypertension
CPT/HCPCS: 93005; 85025; 80048; 36415; 85610; 84484; 83880; 71275; 71045; 99284; Q9967